=== PATIENT | male | born 1970 | race Caucasian/White ===

== ENCOUNTER → 2023-05-04 06:12 | Day surgery (SDC) | payer BC, SELFPAY | LOC: GI 06:12 | PROVIDERS: ATTENDING PHYSICIAN Internal Medicine Gastroenterology | DX: Z12.11 Encounter for screening for malignant neoplasm of colon (principal); K57.30 Diverticulosis of large intestine without perforation or abscess without bleeding; K64.8 Other hemorrhoids; D12.4 Benign neoplasm of descending colon | CPT/HCPCS: 45385 ==